=== PATIENT | female | born 1945 ===

== ENCOUNTER 2020-12-01 06:26 | Observation (INO) ==
[~2020-12-01 06:26] MED LIST: Buffered Lidocaine 1% SYRIN 1 ml INTRADERM ONE; Lactated Ringers 1000 ml BAG 1,000 ML IV SCH
[2020-12-01] MEDS ORDERED: Bupivacaine 0.5% SDV PF 30ML VIAL ONE (06:54)
[2020-12-01] MEDS ORDERED: Lidocaine 2% PF 10 ML AMP ONE (06:54)
[2020-12-01] MEDS ORDERED: Bupivacaine 0.25% SDV 30 ML ONE (06:54)
[2020-12-01] MEDS ORDERED: Phenylephrine IV 10 MG/ML 1 ml VIAL ONE (07:04)
[2020-12-01] MEDS ORDERED: Propofol 10 MG/ML 20 ML BTL ONE (07:04)
[2020-12-01] MEDS ORDERED: Lidocaine 2% PF 5 ML VIAL ONE (07:04)
[2020-12-01] MEDS ORDERED: ceFAZolin 2 GM PREMIX 2 GM/50 ML BAG ONE (07:06)
[2020-12-01] MEDS ORDERED: Ketamine HCL 50 mg/ml 10 ml VIAL (500 MG) ONE (07:13)
[2020-12-01] MEDS ORDERED: fentaNYL 100 mcg/2 ml 50 MCG/ML VIAL ONE (07:19)
[2020-12-01] MEDS ORDERED: Midazolam 2 mg/2 ml VIAL 1 mg/ml 2 ml VIAL (2 mg) ONE ×2 (07:19→08:13)
[2020-12-01] MEDS ORDERED: ROPIVACAINE 5 MG/ML 30 ML BTL (0.5%) ONE (08:14)
[2020-12-01] MEDS ORDERED: fentaNYL 100 mcg/2 ml 50 MCG/ML VIAL IV PRN (08:37)
[2020-12-01] MEDS ORDERED: EPHEDrine (Pressors) 50 MG/ML VIAL ONE (08:38)
[2020-12-01] MEDS ORDERED: Ondansetron ODT 4 mg TAB 4 MG TAB PO PRN (10:28)
[2020-12-01] MEDS ORDERED: diPHENhydraMINE 25 mg TAB PO PRN (10:28)
[2020-12-01] MEDS ORDERED: diPHENhydraMINE IV 50 MG/ML 1 ml VIAL (BENADRYL) IV PRN (10:28)
[2020-12-01] MEDS ORDERED: Lactulose 30 ml UDC PO PRN (10:28)
[2020-12-01] MEDS ORDERED: Morphine 2 MG/ML SYRINGE IV PRN (10:28)
[2020-12-01] MEDS ORDERED: Ondansetron 4 mg VIAL 2 MG/ML 2 ml VIAL IV PRN (10:28)
[2020-12-01] MEDS ORDERED: Magnesium Hydroxide LIQ 30 ML UDC PO PRN (10:28)
[2020-12-01] MEDS ORDERED: oxyCODONE/Acetamin 5/325 mg TAB ONE (11:13)
[2020-12-01] MEDS: oxyCODONE/Acetamin 5/325 mg TAB PO PRN ×3 (11:22→21:34)
[2020-12-01] MEDS: Lactated Ringers 1000 ml BAG 1,000 ML IV SCH ×2 (12:19→22:52)
[2020-12-01] MEDS: ceFAZolin 1 GM ADVAN 1 GM in NS 0.9% 50 ML 50 ML IVPB SCH ×2 (16:16→23:57)
[2020-12-01] MEDS: Magnesium Hydroxide LIQ 30 ML UDC PO SCH (21:37)
[2020-12-02] MEDS: oxyCODONE/Acetamin 5/325 mg TAB PO PRN (02:53)
[2020-12-02 06:31] LABS: Hematocrit 32 % (35-47); Hemoglobin 10.6 g/dL (12.0-16.0); Platelet Count 225 10^3/uL (150-450)
[2020-12-02 06:50] LABS: Calcium 8.2 mg/dL (8.6-10.3); EGFR African American 103.5 (>60); EGFR Non-African American 85.6 (>60); Potassium 3.8 mmol/L (3.5-5.0)
[2020-12-02] MEDS: ceFAZolin 1 GM ADVAN 1 GM in NS 0.9% 50 ML 50 ML IVPB SCH (08:05)
[2020-12-02] MEDS: Magnesium Hydroxide LIQ 30 ML UDC PO SCH (08:12)
[2020-12-02] MEDS ORDERED: Cholecalciferol (VIT D3) 1,000 unit TAB PO SCH (09:00)
[2020-12-02] MEDS ORDERED: Potassium Citrate 10 meq T(NF) PO SCH (09:00)
[2020-12-02] MEDS ORDERED: Vitamin THERAPEUTIC TAB PO SCH (09:00)
[2020-12-02] MEDS: Lactated Ringers 1000 ml BAG 1,000 ML IV SCH (13:11)
[2020-12-02 14:35] VITALS: BP 120/49
== END 2020-12-02 16:30 | disposition home or self-care (01) ==
LOC: INTOOBSV 06:26 → AA 06:26 → SSU 11:49
PROVIDERS: ADMIT Orthopaedic Surgery Adult Reconstructive Orthopaedic Surgery; ATTEND Orthopaedic Surgery Adult Reconstructive Orthopaedic Surgery